=== PATIENT | female | born 1995 | race Caucasian/White ===

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

== ENCOUNTER 2017-07-02 09:41 | Emergency (ER) | payer OTHER ==
[2017-07-02 09:46] VITALS: RESP 18
[2017-07-02] MEDS ORDERED: ALBUTEROL 3 ML DEYVIAL IH ONE (10:18)
--- NOTE | 2017-07-02 10:21 | EDPHY ---
H & P Time Seen by Provider: 07/02/17 10:04 HPI/ROS: CHIEF COMPLAINT: Cough, shortness of breath HISTORY OF PRESENT ILLNESS: 22-year-old female presents to the emergency department with cough and shortness of breath. Symptoms began 3 weeks ago. She initially had a sore throat and went to urgent care and had a negative mono spot. She states that the sore throat has improved somewhat but it feels swollen and she is having difficulty breathing. No fevers or chills. No abdominal pain. No neck or back pain. She has a history of bronchitis. She was given an inhaler 2 years ago. She did prior her inhaler last night without relief. She had asthma as a child. She did not receive a flu shot this year. REVIEW OF SYSTEMS: Constitutional: No fever, no chills. Eyes: No double or blurry vision. ENT: No sore throat. Respiratory: Cough, shortness of breath Cardiac: No chest pain. Gastrointestinal: No abdominal pain, vomiting or diarrhea. Genitourinary: No dysuria. Musculoskeletal: No neck or back pain. Skin: No rashes. Neurological: No headache. Past Medical/Surgical History: Asthma as a child Social History: [employer] student Smoking Status: Never smoked Physical Exam: General Appearance: Alert, no distress. 36.8, 99% on room air. Eyes: Pupils equal and round. Extraocular motions are all intact. ENT: Mouth: Mucous membranes moist. Respiratory: Expiratory rhonchi specially in the bases. No crackles. No respiratory distress. Cardiovascular: Regular rate and rhythm. Gastrointestinal: Abdomen is soft and nontender, no masses, no rebound or guarding, bowel sounds normal. Neurological: Alert and oriented x 3, cranial nerves II through XII grossly intact Skin: Warm and dry, no rashes. Musculoskeletal: Nontender to palpate along the cervical, thoracic or lumbar spine. Neck is supple. Extremities: Full range of motion and no peripheral edema. Psychiatric: Patient is oriented X 3, there is no agitation. Constitutional: Initial Vital Signs Temperature (C) 36.8 C 07/02/17 09:44 Heart Rate 71 07/02/17 09:44 Respiratory Rate 18 07/02/17 09:44 Blood Pressure 130/72 H 07/02/17 09:44 O2 Sat (%) 99 07/02/17 09:44 O2 Delivery Mode Room Air Allergies/Adverse Reactions: No Known Allergies Allergy (Verified 07/02/17 09:44) Home Medications: Medication Instructions Recorded Albuterol 07/02/17 Albuterol [Proventil Inhaler HFA 1 - 2 puffs IH Q4PRN PRN #1 mdi 07/02/17 (*)] predniSONE 60 mg PO DAILY 3 Days tab 07/02/17 Medical Decision Making - Diagnostics Imaging Results: Imaging Impressions Chest X-Ray 07/02/17 09:48 Impression: Clear lungs. No pneumonia. Imaging: I viewed and interpreted images myself ED Course/Re-evaluation: Healthy 22-year-old female presents emergency department with chronic cough for last 3 weeks. She developed some pressure and pain in her chest. The nurse had ordered a chest x-ray which reveals no evidence of pneumonia. Clinically I think this patient likely has bronchitis. She was given albuterol nebulizer. Patient was feeling much better after albuterol nebulizer. Chest x-ray reveals no evidence of pneumonia. She will be treated with albuterol MDI and prednisone. She was given primary care referral. She was instructed to return if she had any change in symptoms or felt worse. Differential Diagnosis: Including not limited to bronchitis, pneumonia, influenza, viral upper respiratory infection - Data Points Medications Given: Discontinued Medications Albuterol (Proventil Neb) 3 ml IH EDNOW ONE Stop: 07/02/17 10:19 Last Admin: 07/02/17 10:21 Dose: 3 ml Departure - Departure Disposition: Home, Routine, Self-Care Clinical Impression: Acute bronchitis Qualifiers: Bronchitis organism: unspecified organism Qualified Code(s): J20.9 - Acute bronchitis, unspecified Condition: Good Instructions: Acute Bronchitis (ED) Additional Instructions: Ibuprofen 600 mg every 8 hr as needed for pain. Albuterol inhaler 2 puffs every 4 hr for 1 week and then as needed. Referrals: Marzena Miller MD [[facility] Primary Care Provider] - 2-3 days, if not improved (The primary care provider) Stand Alone Forms: School Excuse Prescriptions: Albuterol [Proventil Inhaler HFA (*)] 1 - 2 puffs IH Q4PRN PRN #1 mdi PRN Reason: prn shortness of breath predniSONE 60 mg PO DAILY 3 Days tab
[2017-07-02 10:25] VITALS: PULSE 70
[2017-07-02 11:03] VITALS: BP 135/70; TEMP 98.1; O2SAT 97
== END 2017-07-02 11:09 | disposition home or self-care (01) ==
DX: J20.9 Acute bronchitis, unspecified (principal); J45.909 Unspecified asthma, uncomplicated
CPT/HCPCS: J7613